=== PATIENT | male | born 1970 | race Two or more races ===

== ENCOUNTER → 2020-06-07 | Outpatient (CLI) | payer MEDICAID ==
[~2020-06-07] MED LIST: ALLO300T2 PO; AMLO10TA80 PO; ASPI-1497 PO; ATOR20TA65 PO; CARV12.545 PO; FURO-151 PO; METF-873 PO; MIDAZOLAM HCL 2 MG/2 ML VIAL ONE; SACU1TAB PO
== END | disposition home or self-care (01) ==
LOC: LAB 10:36
PROVIDERS: ATTEND Specialist
DX: Z01.812 Encounter for preprocedural laboratory examination (principal); R05 Cough; Z20.822 Contact with and (suspected) exposure to COVID-19
CPT/HCPCS: 87426

== ENCOUNTER 2020-06-08 06:18 | Inpatient (IN) | payer MEDICAID ==
[~2020-06-08] VITALS: Ht 170.2 cm; Wt 129.8 kg
[2020-06-08] VITALS (21 sets, daily range): BP systolic 100–138; BP diastolic 53–95
[2020-06-08] MEDS ORDERED: NITROGLYCERIN 50MCG/ML 10ML VIAL (CATH LAB) IV ONE (07:00)
[2020-06-08] MEDS ORDERED: HEPARIN SODIUM 1,000 UNIT/1ML VIAL IV ONE (07:00)
[2020-06-08] MEDS ORDERED: NICARDIPINE 100MCG/ML 10ML VIAL (CATH LAB) IV ONE (07:00)
[2020-06-08] MEDS ORDERED: IODIXANOL 320MG/ML 100 ML BOTTLE IV ONE ×2 (07:33→09:10)
[2020-06-08] MEDS ORDERED: LIDOCAINE HCL 1% 20ML VIAL (Pyxis) INJ ONE ×2 (07:33→08:22)
[2020-06-08] MEDS ORDERED: IOHEXOL-300 100 ML BOTTLE ONE (07:33)
[2020-06-08] MEDS ORDERED: ASPIRIN/SOD BICARB/CITRIC ACID 324MG TAB EFF ONE (07:43)
[2020-06-08 07:52] LABS: HEMATOCRIT 45.9 % (42.0-52.0); HEMOGLOBIN 15.2 g/dL (14.0-18.0); MEAN CORPUSCULAR HEMOGLOBIN 27.4 pg (28.0-32.0); PLATELET 197 x1000/uL (130-400); RED BLOOD CELL COUNT 5.53 mill/uL (4.7-6.1); RED CELL DISTRIBUTION WIDTH 14.3 % (11.6-14.6)
[2020-06-08] MEDS ORDERED: FENTANYL CITRATE/PF 50MCG/ML 2ML VIAL ONE (08:01)
[2020-06-08] MEDS ORDERED: MIDAZOLAM HCL 2 MG/2 ML VIAL ONE (08:01)
[2020-06-08] MEDS ORDERED: ALLO300T2 PO (08:19)
[2020-06-08] MEDS ORDERED: AMLO10TA80 PO (08:19)
[2020-06-08] MEDS ORDERED: SACU1TAB PO (08:19)
[2020-06-08] MEDS ORDERED: CARV12.545 PO (08:19)
[2020-06-08] MEDS ORDERED: METF-873 PO (08:19)
[2020-06-08] MEDS ORDERED: ATOR20TA65 PO (08:19)
[2020-06-08] MEDS ORDERED: FURO-151 PO (08:19)
[2020-06-08] MEDS ORDERED: ASPI-1497 PO (08:19)
[2020-06-08] MEDS ORDERED: ONDANSETRON HCL 4MG/2ML INJ IV PRN (09:15)
[2020-06-08] MEDS ORDERED: SODIUM CHLORIDE 0.45% 600 ML IV ONE (09:15)
[2020-06-08] MEDS ORDERED: CLOPIDOGREL 75MG TABLET PO ONE (09:15)
[2020-06-08] MEDS ORDERED: MORPHINE SULFATE 2 MG/ML CPJ (NOT FOR IM USE) IV PRN (09:15)
[2020-06-08] MEDS ORDERED: ATROPINE SULFATE 1MG/10ML SYR IV PRN (09:15)
[2020-06-08] MEDS ORDERED: ACETAMINOPHEN 325MG TABLET PO PRN (09:15)
[2020-06-08] MEDS ORDERED: CLOPIDOGREL 75MG TABLET ONE (09:23)
[2020-06-08] MEDS ORDERED: AMLODIPINE 5MG TABLET PO NR (09:30)
[2020-06-08] MEDS: SACUBITRIL/VALSARTAN 24/26 TAB PO SCH ×2 (12:46→18:43)
[2020-06-08] MEDS: CARVEDILOL 3.125 MG TABLET PO SCH (20:54)
[2020-06-08] MEDS ORDERED: ATORVASTATIN CALCIUM 20MG TABLET PO SCH (21:00)
[2020-06-09] VITALS (9 sets, daily range): BP systolic 100–130; BP diastolic 50–87
[2020-06-09 07:58] LABS: BASOPHILS % 0.5 % (0.0-2.0); HEMATOCRIT. 44.6 % (42.0-52.0); HEMOGLOBIN. 14.2 g/dL (14.0-18.0); LYMPHOCYTES % 36.9 % (20.0-50.0); MEAN CORPUSCULAR HEMOGLOBIN 26.4 pg (28.0-32.0); MEAN CORPUSCULAR VOLUME 83.1 fL (80.0-94.0); MEAN PLATELET VOLUME 8.7 fl (7.4-10.4); MONOCYTES % 8.1 % (2.0-8.0); NEUTROPHILS % 53.5 % (40.0-76.0); PLATELET 175 x1000/uL (130-400); RED BLOOD CELL COUNT 5.37 mill/uL (4.7-6.1); RED CELL DISTRIBUTION WIDTH 14.3 % (11.6-14.6)
[2020-06-09 08:08] LABS: CHLORIDE 106 mEq/L (98-107)
[2020-06-09] MEDS: CARVEDILOL 3.125 MG TABLET PO SCH (08:48)
[2020-06-09] MEDS: SACUBITRIL/VALSARTAN 24/26 TAB PO SCH (08:49)
[2020-06-09] MEDS ORDERED: CLOPIDOGREL 75MG TABLET PO SCH (09:00)
[2020-06-09] MEDS ORDERED: FUROSEMIDE 40MG TABLET PO SCH (09:00)
[2020-06-09] MEDS ORDERED: ASPIRIN 325MG TABLET PO SCH (09:00)
[2020-06-09] MEDS ORDERED: CARVEDILOL 3.125 MG TABLET PO SCH (10:00)
[2020-06-09] MEDS ORDERED: CARVEDILOL 6.25 MG TABLET PO SCH (21:00)
== END 2020-06-09 13:58 | disposition home or self-care (01) | DRG 175 ==
LOC: CCL 06:18 → 3WST 06:19
PROVIDERS: ADMIT Specialist; ATTEND Specialist
PROC: 027034Z Dilation of Coronary Artery, One Artery with Drug-eluting Intraluminal Device, Percutaneous Approach (ICD-10-PCS; principal; 2020-06-08)
PROC: 4A023N7 Measurement of Cardiac Sampling and Pressure, Left Heart, Percutaneous Approach (ICD-10-PCS; 2020-06-08)
PROC: B2101ZZ Fluoroscopy of Single Coronary Artery using Low Osmolar Contrast (ICD-10-PCS; 2020-06-08)
DX: I25.10 Atherosclerotic heart disease of native coronary artery without angina pectoris (principal); I25.5 Ischemic cardiomyopathy; I44.7 Left bundle-branch block, unspecified; E66.01 Morbid (severe) obesity due to excess calories; I11.0 Hypertensive heart disease with heart failure; I50.22 Chronic systolic (congestive) heart failure; E11.9 Type 2 diabetes mellitus without complications; Z68.41 Body mass index [BMI] 40.0-44.9, adult; Z79.84 Long term (current) use of oral hypoglycemic drugs
CPT/HCPCS: 36415; 80048; 82962; 85025; 85027; 85347; 92928; 93005; 93454; C1769; C1874; C1887; C1893; J1644; J2250; J3010; J3490; Q9967